=== PATIENT | female | born 1955 | race Caucasian/White ===

== ENCOUNTER 2017-08-04 08:53 | Day surgery (SDC) | payer OTHER ==
[~2017-08-04] VITALS: Ht 152.4 cm; Wt 78.0 kg
[~2017-08-04 08:53] MED LIST: ACCOLATE10 MG PO; ACCOLATE20 MG PO; ADVAIR 250/501 DISK IH; ADVAIR HFA120 INHAL1 IH; ASPIR 8181 M1 PO; ASPIR-LOW81 MG PO; Aspirin E.C. PO; CIPRO500 MG PO; DICYCLOMINE HCL20 MG PO; DUONEB3 ML IH; Ecotrin PO; FLAGYL500 MG PO; GABAPENTIN300 MG PO; IMDUR; IMODIUM MS REL1 EACH PO; ISOSORBIDE DINI20 MG PO; KLONOPIN1 MG PO; LEVOFLOXACIN250 MG PO; LIPITOR10 MG PO; LIPITOR40 MG PO; LO-DOSE ASPIRIN81 M2 PO; Levaquin PO; Lopressor PO; METOPROLOL SUCC25 MG PO; METRONIDAZOLE500 MG PO; MORPHINE SULFAT15 M1 PO; NEURONTIN300 MG PO; NEURONTIN600 MG PO; NICOTINE PATCH1 EAC2 TD; NITROSTAT0.4 MG SL; OMEPRAZOLE40 M1 PO; PERCOCET 5/31 TABLET PO; PLAVIX75 MG PO; PREDNISONE10 MG PO; PREDNISONE20 MG PO; PRILOSEC40 MG PO; PROAIR HFA8.5 GM IH; PROTONIX40 MG PO; PROVENTIL,2.5 MG/3 M IH; PROVENTIL17 GM IH; PROZAC40 MG PO; RANEXA500 MG PO; SYMBICORT60 INHALAT IH; TAMIFLU75 MG PO; THEO-24200 MG PO; THEO-DUR,THEOC200 MG PO; THEOPHYLLINE A200 M1 PO; THEOPHYLLINE400 MG PO; TOPROL XL25 MG PO; VENTOLIN HFA18 GM IH; WELLBUTRIN SR150 MG PO; ZOFRAN4 MG PO; ZOFRAN8 MG PO; ZOLOFT100 MG PO; predniSONE PO
== END 2017-08-04 11:05 | disposition home or self-care (01) ==
LOC: PAIN 08:53 → SDC 09:30 → PAIN 11:05
DX: M47.26 Other spondylosis with radiculopathy, lumbar region (principal); M54.5 Low back pain; G89.29 Other chronic pain; M17.11 Unilateral primary osteoarthritis, right knee; I10 Essential (primary) hypertension; J44.9 Chronic obstructive pulmonary disease, unspecified; I25.10 Atherosclerotic heart disease of native coronary artery without angina pectoris; I25.2 Old myocardial infarction; F17.200 Nicotine dependence, unspecified, uncomplicated; E78.5 Hyperlipidemia, unspecified; K21.9 Gastro-esophageal reflux disease without esophagitis; K76.0 Fatty (change of) liver, not elsewhere classified; E66.9 Obesity, unspecified; Z68.35 Body mass index [BMI] 35.0-35.9, adult; R73.03 Prediabetes; Z86.711 Personal history of pulmonary embolism; Z79.82 Long term (current) use of aspirin; Z79.02 Long term (current) use of antithrombotics/antiplatelets; Z79.891 Long term (current) use of opiate analgesic
CPT/HCPCS: 93005; J1030; J1885; J2250; J3010; S0020

== ENCOUNTER 2017-12-07 05:34 | Emergency (ER) | payer OTHER ==
[~2017-12-07] VITALS: Ht 152.4 cm; Wt 78.6 kg
[2017-12-07] MEDS ORDERED: LIDODERM 5% P1 PATCH TD (06:36)
[2017-12-07] MEDS ORDERED: FLEXERIL10 MG PO (06:36)
[2017-12-07 07:51] VITALS: BP 175/91
== END 2017-12-07 07:50 | disposition home or self-care (01) ==
LOC: EME 05:34
DX: M54.42 Lumbago with sciatica, left side (principal); G89.29 Other chronic pain; Z79.891 Long term (current) use of opiate analgesic; J44.9 Chronic obstructive pulmonary disease, unspecified; E78.5 Hyperlipidemia, unspecified; I25.2 Old myocardial infarction; Z86.73 Personal history of transient ischemic attack (TIA), and cerebral infarction without residual deficits; I25.10 Atherosclerotic heart disease of native coronary artery without angina pectoris; F32.9 Major depressive disorder, single episode, unspecified; Z95.1 Presence of aortocoronary bypass graft; Z95.5 Presence of coronary angioplasty implant and graft; F17.200 Nicotine dependence, unspecified, uncomplicated; Z79.02 Long term (current) use of antithrombotics/antiplatelets; Z79.82 Long term (current) use of aspirin; Z88.5 Allergy status to narcotic agent; Z88.6 Allergy status to analgesic agent
CPT/HCPCS: 99281; 99284; J1170; J2270

== ENCOUNTER 2017-12-15 10:44 | Day surgery (SDC) | payer OTHER ==
[~2017-12-15] VITALS: Ht 152.4 cm; Wt 73.9 kg
[~2017-12-15 10:44] MED LIST changes: +FLEXERIL10 MG PO; +LIDODERM 5% P1 PATCH TD
== END 2017-12-15 11:45 | disposition home or self-care (01) ==
LOC: PAIN 10:44 → SDC 11:00 → PAIN 11:45
DX: M47.816 Spondylosis without myelopathy or radiculopathy, lumbar region (principal); M54.16 Radiculopathy, lumbar region; M54.5 Low back pain; G89.29 Other chronic pain; J44.9 Chronic obstructive pulmonary disease, unspecified; E78.5 Hyperlipidemia, unspecified; I25.2 Old myocardial infarction; F41.9 Anxiety disorder, unspecified; Z95.1 Presence of aortocoronary bypass graft; Z79.82 Long term (current) use of aspirin; Z79.891 Long term (current) use of opiate analgesic
CPT/HCPCS: J1100; J1885; J2250; J3010

== ENCOUNTER 2018-01-14 09:18 | Day surgery (SDC) | payer OTHER ==
[~2018-01-14] VITALS: Ht 152.4 cm; Wt 73.9 kg
== END 2018-01-14 11:17 | disposition home or self-care (01) ==
LOC: PAIN 09:18 → SDC 09:45 → PAIN 11:17
DX: M54.16 Radiculopathy, lumbar region (principal); M51.26 Other intervertebral disc displacement, lumbar region; M47.816 Spondylosis without myelopathy or radiculopathy, lumbar region; F17.200 Nicotine dependence, unspecified, uncomplicated; I25.10 Atherosclerotic heart disease of native coronary artery without angina pectoris; I25.2 Old myocardial infarction; Z95.1 Presence of aortocoronary bypass graft; J44.9 Chronic obstructive pulmonary disease, unspecified; K21.9 Gastro-esophageal reflux disease without esophagitis; M19.90 Unspecified osteoarthritis, unspecified site; F32.9 Major depressive disorder, single episode, unspecified; Z86.718 Personal history of other venous thrombosis and embolism; Z79.82 Long term (current) use of aspirin; Z88.5 Allergy status to narcotic agent; Z88.6 Allergy status to analgesic agent; Z88.8 Allergy status to other drugs, medicaments and biological substances
CPT/HCPCS: J1100; J2250

== ENCOUNTER 2018-03-20 14:39 | Observation (INO) | payer OTHER ==
[~2018-03-20] VITALS: Ht 152.4 cm; Wt 71.6 kg
[~2018-03-20 14:39] MED LIST changes: +PERCOCET 7.51 TABLET PO
[2018-03-20 15:34] LABS: HEMATOCRIT 40.2 % (36.0-46.0); HEMOGLOBIN 13.7 G/DL (11.9-15.5); MCH 31.9 PG (29.0-34.0); MCHC 34.1 G/DL (30.0-36.0); MCV 93.5 FL (83-99); PLATELET COUNT 232 K/uL (156-360); RBC DIS.WIDTH-CV 12.8 % (11.8-14.6); WHITE BLOOD COUNT 7.8 K/uL (4.1-10.2)
[2018-03-20 15:39] LABS: INTER. NORMALIZED RATIO 1.1
[2018-03-20 15:41] LABS: ALBUMIN 3.9 g/dL (3.2-4.8); CHLORIDE 105 mEq/L (99-109); POTASSIUM 3.8 mEq/L (3.7-5.4); SODIUM 139 mEq/L (136-147)
[2018-03-20 15:43] LABS: GLUCOSE 101 mg/dL (70-99)
[2018-03-20 15:44] LABS: TOTAL PROTEIN 6.5 g/dL (6.4-8.3)
[2018-03-20 15:45] LABS: TOTAL BILIRUBIN 0.8 mg/dL (0.0-1.0)
[2018-03-20 15:47] LABS: ALKALINE PHOSPHATASE 89 IU/L (3-129); CREATININE 0.8 mg/dL (0.6-1.3); GFR ESTIMATE (CALCULATED) > 59 mL/min/
[2018-03-20 15:48] LABS: UREA NITROGEN (BUN) 10 mg/dL (9-23)
[2018-03-20 15:49] LABS: AST (GOT) 17 IU/L (2-34)
[2018-03-20 15:50] LABS: ALT (GPT) 18 IU/L (3-49)
[2018-03-20 15:57] LABS: TROP-I INTERPRETATION NEGATIVE; TROPONIN-I < 0.01 ng/mL (0.0-0.30)
[2018-03-20] MEDS ORDERED: PERCOCET 7.51 TABLET PO ×2 (16:36)
[2018-03-20 17:39] LABS: HDL CHOLESTEROL 43 MG/DL (Desirable>=50); LDL CHOLESTEROL 128 mg/dL (Desirable<100); NON-HDL CHOLESTEROL 150 mg/dL (Desirable<160); TOTAL CHOLESTEROL 193 mg/dL (Desirable<200); TRIGLYCERIDES 108 MG/DL (Normal: <150)
[2018-03-20 18:10] VITALS: BP 139/63
[2018-03-20 20:09] VITALS: BP 124/60
[2018-03-20 23:52] VITALS: BP 122/55
[2018-03-21 04:14] VITALS: BP 126/59
[2018-03-21 07:09] VITALS: BP 123/60
[2018-03-21 11:54] VITALS: BP 120/66
[2018-03-21 15:24] VITALS: BP 119/57
[2018-03-21 19:07] VITALS: BP 129/62
[2018-03-21 23:30] VITALS: BP 117/58
[2018-03-22 09:27] LABS: HEMOGLOBIN A1c (GLYCOHEMOGLOB) 5.9 % (Below 5.7)
[2018-03-22 09:29] VITALS: BP 134/76
[2018-03-22 11:02] VITALS: BP 110/61
== END 2018-03-22 11:56 | disposition left against medical advice (07) ==
LOC: EME 14:39 → EDOF 16:34 → ENRESERV 16:38 → 4SOUTH 18:05
PROVIDERS: Emergency Medicine; Internal Medicine
PROC: B246ZZZ Ultrasonography of Right and Left Heart (ICD-10-PCS; principal; 2018-03-22)
DX: G45.9 Transient cerebral ischemic attack, unspecified (principal); I10 Essential (primary) hypertension; E78.5 Hyperlipidemia, unspecified; I25.10 Atherosclerotic heart disease of native coronary artery without angina pectoris; J44.9 Chronic obstructive pulmonary disease, unspecified; G89.29 Other chronic pain; M54.5 Low back pain; Z95.5 Presence of coronary angioplasty implant and graft; Z95.1 Presence of aortocoronary bypass graft; Z79.82 Long term (current) use of aspirin; Z79.02 Long term (current) use of antithrombotics/antiplatelets; F17.200 Nicotine dependence, unspecified, uncomplicated; Z82.49 Family history of ischemic heart disease and other diseases of the circulatory system; Z88.6 Allergy status to analgesic agent; Z88.5 Allergy status to narcotic agent
CPT/HCPCS: 70450; 80053; 80061; 81003; 82948; 83036; 84484; 85027; 85610; 93005; 93306; 93880; 94640; 94640 76; 94760; 99202; 99281; 99285; G0378; J1650